=== PATIENT | female | born 1975 | race Two or more races ===

== ENCOUNTER 2023-12-20 09:22 | Day surgery (SDC) | payer BC ==
[2023-12-11 15:55] VITALS: BMI 24.7
[2023-12-20 11:32] VITALS: RESP 18; TEMP 98
[2023-12-20 11:34] VITALS: BP 110/70; PULSE 77
== END 2023-12-20 12:00 | disposition home or self-care (01) ==
LOC: FASU-ENDO 09:22
PROVIDERS: ATTEND Internal Medicine Gastroenterology
PROC: 0DBN8ZX Excision of Sigmoid Colon, Via Natural or Artificial Opening Endoscopic, Diagnostic (ICD-10-PCS; principal; 2023-12-20 10:40)
DX: Z12.11 Encounter for screening for malignant neoplasm of colon (principal); K63.5 Polyp of colon; Z86.010 Personal history of colon polyps; K64.1 Second degree hemorrhoids
CPT/HCPCS: 81025; 88305-TC